=== PATIENT | male | born 1945 | race Caucasian/White ===

== ENCOUNTER 2020-07-24 00:02 | Emergency (ER) | payer MEDICARE, MEDICAID, SELFPAY ==
[2020-07-24] VITALS (7 sets, daily range): BP systolic 115–170; BP diastolic 63–106; PULSE 83–105; RESP 17–21; TEMP 36.6; O2SAT 91–96; BMI 23.3
--- NOTE | 2020-07-24 00:15 | XR_ITS ---
WS: [id number] Portable AP upright chest, 07/24/2020 Clinical Data: sob Comparison: Portable chest, 08/09/2015. Findings: No nodules, masses or effusions are seen. The heart is normal. The pulmonary vascularity is not increased. No pneumonia or pneumothorax is seen. The aortic arch and descending aorta show calci fication and tortuosity. The diaphragms are flattened. XR/XR chest 1V portable [id number] Impression: Atherosclerosis and hyperinflation.
--- NOTE | 2020-07-24 00:33 | ED_ITS ---
HPI - SOB/Dyspnea General: Chief Complaint: Shortness of Breath/Dyspnea Stated Complaint: sob Time Seen by Provider: 07/24/20 00:05 Source: patient Mode of arrival: ambulatory Limitations: no limitations History of Present Illness: HPI Narrative: 75-year-old male who is a long-term smoker and has been told the past he may have COPD but does not see a physician. He states that he said increasing shortness of breath over the last 2 to 3 days. When EMS arrived he states that he had diffuse wheezing he had a breathing treatment in route and is improved. He states he had a slight cough but denies any fever. Continues to smoke. He denies any chest pain. He states he feels improved after those breathing treatments. Associated symptoms: Deny abdominal pain, chest pain, fever(s), nausea or vomiting Review of Systems Const: Denies: fever(s), chills, body aches or change in appetite Eyes: Denies: blurry vision or eye discomfort ENMT: Denies: throat pain or dental pain Card: Denies: chest pain Resp: Denies: dyspnea GI: Denies: abdominal pain, nausea, vomiting or diarrhea : Denies: dysuria Musc: Denies: neck pain or back pain Skin/Breast: Denies: rash Neuro: Denies: headache(s) Psych: Denies: depression Buddy/Lymph: Denies: easy bruising All/Imm: Denies: urticaria Physical Exam Const: COMMON NORMALS: no acute distress, patient oriented x3 and healthy appearing HENMT: COMMON NORMALS: normocephalic and atraumatic HEAD & SCALP: normocephalic and atraumatic Eye: COMMON NORMALS: Equal, round and reactive pupils present and EOMs intact bilaterally PUPIL: Yes Equal, round and reactive pupils present Neck/C-Spine: COMMON NORMALS: full ROM and supple Chest: COMMONS NORMALS: normal inspection of the chest and normal palpation of entire chest wall Resp: COMMON NORMALS: normal respiratory effort, No retractions and No use of accessory muscles AUSCULTATION: wheezes Cardio: COMMON NORMALS: regular rate, regular rhythm and No murmurs present (Cardio) RATE: regular rate RHYTHM: regular rhythm GI: COMMON NORMALS: Normal to inspection, nondistended, normoactive bowel sounds present, Soft to palpation, non-tender and no masses PALPATION: Yes Soft to palpation Extremity: COMMON NORMALS: normal to inspection and full ROM Neuro: COMMON NORMALS: patient oriented x3, moves all extremities and no focal motor deficits Psych: COMMON NORMALS: mental status grossly normal, Normal thought process present and cooperative THOUGHT PROCESS: Normal thought process present Skin: COMMON NORMALS: no rashes or lesions noted and no wounds GENERAL SKIN EXAM: no rashes or lesions noted Course Vital Signs: Vital signs: Vital Signs Temperature 97.9 F 07/24/20 02:34 Pulse Rate 86 07/24/20 02:39 Respiratory Rate 19 H 07/24/20 02:34 Blood Pressure 146/95 07/24/20 02:34 Pulse Oximetry 91 07/24/20 02:34 MDM - SOB/Dyspnea MDM Narrative: Medical decision making narrative: Patient presents for shortness of breath along with likely bronchitis and undiagnosed COPD. Informed him he is to try and stop smoking. He feels much improved here after breathing treatments. X-ray shows no signs of pneumonia. I did offer him admission but he states he feels improved. Informed him he needs to get a outpatient PCP. Placed him on steroids and albuterol and he is to return if worsening. He understands agrees to plan. Lab Data: Labs: Lab Results 07/24/20 07/24/20 07/24/20 Range/Units 00:30 00:30 01:05 WBC 6.9 (4.0-10.0) 10^3/ uL RBC 4.62 (4.1-5.3) 10^6/u L Hgb 15.4 (11.7-16.6) g/dL Hct 44.8 (42.0-52.0) % MCV 97.0 H (80-94) fL MCH 33.3 (28.0-34.0) pg MCHC 34.4 (30.0-36.0) g/dL RDW 12.1 (12.1-15.1) % Plt Count 179 (130-400) 10^3/c mm MPV 10.4 (7.4-10.4) fL Neut % (Auto) 68.1 % Lymph % (Auto) 20.3 % [place] % (Auto) 9.0 % Eos % (Auto) 1.9 % Baso % (Auto) 0.4 % Neut # (Auto) 4.69 (1.8-7.7) 10^3/u L Lymph # (Auto) 1.4 (0.8-4.8) 10^3/u L [place] # (Auto) 0.6 (0.2-0.9) 10^3/u L Eos # (Auto) 0.1 (0.0-0.8) 10^3/u L Baso # (Auto) 0.0 (0.0-0.1) 10^3/u L Nucleated RBC % (a uto) 0 % Nucleated RBCs # 0.0 /100WBC Sodium 135 L (136-145) mmol/L Potassium 3.9 (3.5-5.1) mmol/L Chloride 99 (98-107) mmol/L Carbon Dioxide 29 (22-29) mmol/L Anion Gap 10.9 (5-19) BUN 12 (8-23) mg/dL Creatinine 0.6 L (0.7-1.2) mg/dL GFR Calculation Not Reportable Glucose 134 H (65-115) mg/dL Calculated Osmolal ity 282 L (285-295) mOsm/k g Calcium 8.9 (8.5-10.5) mg/dL Total Bilirubin 0.5 (0.15-1.2) mg/dL AST 24 (0-40) U/L ALT 16 (0-41) U/L Alkaline Phosphata se 60 (40-130) IU/L NT-Pro-B Natriuret Pep 186 (0-450) pg/mL Total Protein 7.0 (6.6-8.7) g/dL Albumin 4.0 (3.5-5.2) g/dL Globulin 3.0 (1.3-4.6) g/dL SARS-CoV-2 Ag (Rap id) Negative (Negative) Imaging Data^: CXR: Attestation: I personally reviewed and interpreted this imaging study as follows: My impression: no acute abnormality Discharge Plan Discharge Patient Disposition: Home Clinical Impression: Bronchitis Condition: Stable Prescriptions: New Keflex 500 mg capsule 500 mg PO Q6H 7 Days Qty: 28 RF: 0 prednisone 50 mg tablet 50 mg PO DAILY Qty: 5 RF: 0 albuterol sulfate 90 mcg/actuation HFA aerosol inhaler 2 inh INHALATION Q6H PRN (Reason: shortness of breath or wheezing) Qty: 8 RF: 0 Discharge Orders: Discharge ED (Routine); Ordered 07/24/20 Ordered By: Angel Pacheco Discharge Diet: Advance as tolerated Discharge Activity: Resume usual activity Patient Instructions: Acute Bronchitis (ED) Coding Level of Care Code ED Naval Gunfire Liaison Officer for Best Fwd Exam Comprehensive
[2020-07-24 00:48] LABS: Basophils % 0.4 %; Eosinophils # 0.1 10^3/uL (0.0-0.8); Eosinophils % 1.9 %; Hematocrit 44.8 % (42.0-52.0); Hemoglobin 15.4 g/dL (11.7-16.6); Lymphocytes # 1.4 10^3/uL (0.8-4.8); Lymphocytes % 20.3 %; Mean Corpuscular HGB Conc 34.4 g/dL (30.0-36.0); Mean Corpuscular Hemoglobin 33.3 pg (28.0-34.0); Mean Platelet Volume 10.4 fL (7.4-10.4); Monocytes # 0.6 10^3/uL (0.2-0.9); Neutrophils # 4.69 10^3/uL (1.8-7.7); Neutrophils % 68.1 %; Nucleated Red Blood Cells % 0 %; Platelet Count 179 10^3/cmm (130-400); Red Blood Count 4.62 10^6/uL (4.1-5.3); Red Cell Distribution Width 12.1 % (12.1-15.1); White Blood Count 6.9 10^3/uL (4.0-10.0)
[2020-07-24 01:09] LABS: Alkaline Phosphatase 60 IU/L (40-130); Blood Urea Nitrogen 12 mg/dL (8-23); Calcium 8.9 mg/dL (8.5-10.5); Carbon Dioxide 29 mmol/L (22-29); Chloride 99 mmol/L (98-107); Glucose 134 mg/dL (65-115); NT Pro B Type Natriuretic Pept 186 pg/mL (0-450); Osmolality Calculated 282 mOsm/kg (285-295); Sodium 135 mmol/L (136-145); Total Bilirubin 0.5 mg/dL (0.15-1.2)
[2020-07-24 01:11] LABS: Creatinine Clr Calc Pharmacy 80.2533
[2020-07-24] MEDS: ipratropium-albuterol 3 mL Neb INHALATION (01:11)
[2020-07-24 01:12] LABS: Anion Gap 10.9 (5-19); Potassium 3.9 mmol/L (3.5-5.1)
[2020-07-24 01:13] LABS: Alanine Aminotransferase 16 U/L (0-41); Aspartate Amino Transferase 24 U/L (0-40)
[2020-07-24] MEDS: tetanus-dipt-pertussis 0.5 mL SDV IM (01:23)
[2020-07-24 01:38] LABS: SARS Covid-2 Antigen Negative (Negative)
[2020-07-24] MEDS: albuterol 8 gm MDI 2 PUFF INHALATION (02:30)
--- NOTE | 2020-07-24 09:45 | DCPLANNER ---
assistant clinical nurse manager had message to speak with patient about getting established with a primary care physician. assistant clinical nurse manager called phone number [phone], unable to speak with patient at this time. assistant clinical nurse manager unable to leave a voicemail for patient at this time, phone number is no longer in service.
== END 2020-07-24 02:36 | disposition home or self-care (01) ==
PROVIDERS: Emergency Provider Emergency Medicine
DX: J40 Bronchitis, not specified as acute or chronic (principal); Z23 Encounter for immunization; I70.0 Atherosclerosis of aorta
CPT/HCPCS: 71045; 80053; 83880; 85025; 87426; 90471; 90715; 94640; 96374; 99284; J2930; J3535; J7611

== ENCOUNTER 2021-11-03 01:58 | Inpatient (IN) | payer MEDICARE, SELFPAY ==
[2021-11-03] VITALS (17 sets, daily range): BP systolic 79–189; BP diastolic 54–103; PULSE 68–96; RESP 14–18; TEMP 36.4–37.2; O2SAT 90–98; BMI 20.9
--- NOTE | 2021-11-03 02:01 | XRR_ITS ---
PROCEDURE INFORMATION: Exam: XR Chest Exam date and time: 11/03/2021 2:09 AM Age: 76 years old Clinical indication: Injury or trauma; Fall; Blunt trauma (contusions or hematomas) TECHNIQUE: Imaging protocol: XR of the chest. Views: 1 view. COMPARISON: CR XR chest 1V portable [id number] 07/24/2020 12:26 AM FINDINGS: Lungs: No consolidation. Pleural spaces: Unremarkable. No pleural effusion. No pneumothorax. Heart/Mediastinum: No cardiomegaly. Bones/joints: No acute fracture. XR/XR chest 1V portable [id number] IMPRESSION: No acute findings.
--- NOTE | 2021-11-03 02:01 | XRR_ITS ---
PROCEDURE INFORMATION: Exam: XR Right Hip Exam date and time: 11/03/2021 2:03 AM Age: 76 years old Clinical indication: Injury or trauma; Fall; Blunt trauma (contusions or hematomas); Right; Hip TECHNIQUE: Imaging protocol: XR Right hip. Views: 1 view hip with pelvis when performed. COMPARISON: No relevant prior studies available. FINDINGS: Bones/joints: Focal cortical defect noted along the lateral aspect of the right femoral neck which may be degenerative in etiology. Subtle nondisplaced fractures not totally excluded. If symptoms persist correlation with CT may be helpful. Soft tissues: Unremarkable. XR/XR hip RT 2-3V wo/w pel* [id number] IMPRESSION: Focal cortical defect noted along the lateral aspect of the right femoral neck which may be degenerative in etiology. Subtle nondisplaced fractures not totally excluded. If symptoms persist correlation with CT may be helpful.
--- NOTE | 2021-11-03 02:08 | ED_ITS ---
HPI - Fall General: Chief Complaint: Fall Stated Complaint: R hip pain-fall Time Seen by Provider: 11/03/21 02:01 Source: patient and EMS Mode of arrival: EMS Limitations: no limitations History of Present Illness: 76-year-old male states he was bending over to pickling solution maker his dog and he fell. He states he fell at home on the ground onto his right hip. He states immediately had right hip pain has not been able to ambulate or bear any weight since then. He denies any other injuries in his fall. He denies hitting his head denies any neck pain. He does have obvious deformity to his hip he received 100 mg of fentanyl in route by EMS. He still complaining of pain of 6 out of 10 especially with any movement. Associated symptoms-after fall: Denies abdominal pain, chest pain or headache(s) Review of Systems Const: Denies: fever(s), chills, body aches or change in appetite Eyes: Denies: blurry vision or eye discomfort ENMT: Denies: throat pain or dental pain Card: Denies: chest pain Resp: Denies: dyspnea GI: Denies: abdominal pain, nausea, vomiting or diarrhea : Denies: dysuria Musc: Reports: extremity pain Skin/Breast: Denies: rash Neuro: Denies: headache(s) Psych: Denies: depression Buddy/Lymph: Denies: easy bruising All/Imm: Denies: urticaria PFSH ED PFSH: Medical History (Updated 11/03/21 @ 02:25 by Angel Pacheco MD) No pertinent past medical history Social History (Updated 11/03/21 @ 02:11 by Angel Pacheco MD) Smoking and tobacco status: current every day smoker Physical Exam Const: COMMON NORMALS: no acute distress, patient oriented x3 and healthy appearing HENMT: COMMON NORMALS: normocephalic and atraumatic HEAD & SCALP: normocephalic and atraumatic Eye: COMMON NORMALS: Equal, round and reactive pupils present and EOMs intact bilaterally PUPIL: Yes Equal, round and reactive pupils present Neck/C-Spine: COMMON NORMALS: full ROM and supple Chest: COMMONS NORMALS: normal inspection of the chest and normal palpation of entire chest wall Resp: COMMON NORMALS: normal respiratory effort, No retractions, No use of accessory muscles and clear to auscultation bilaterally AUSCULTATION: clear to auscultation bilaterally Cardio: COMMON NORMALS: regular rate, regular rhythm and No murmurs present (Cardio) RATE: regular rate RHYTHM: regular rhythm GI: COMMON NORMALS: Normal to inspection, nondistended, normoactive bowel sounds present, Soft to palpation, non-tender and no masses PALPATION: Yes Soft to palpation Extremity: NARRATIVE EXTREMITY EXAM: Tenderness over right hip distal pulses intact. Neuro: COMMON NORMALS: patient oriented x3, moves all extremities and no focal motor deficits Psych: COMMON NORMALS: mental status grossly normal, Normal thought process present and cooperative THOUGHT PROCESS: Normal thought process present Skin: COMMON NORMALS: no rashes or lesions noted and no wounds GENERAL SKIN EXAM: no rashes or lesions noted Course Vital Signs: Vital signs: Vital Signs Temperature 98.5 F 11/03/21 02:00 Pulse Rate 76 11/03/21 02:00 Respiratory Rate 18 11/03/21 02:00 Blood Pressure 189/103 11/03/21 02:00 Pulse Oximetry 90 11/03/21 02:00 MDM - Fall Medical Decision Making Patient presents with a right hip fracture from a fall. No other injuries from the fall I spoke to hospitalist along with orthopedist and will admit at this time. Lab Data : 11/03/21 02:04 11/03/21 02:04 Laboratory Results WBC 8.0 10^3/uL (4.0-10.0) 11/03/21 02:04 RBC 4.66 10^6/uL (4.1-5.3) 11/03/21 02:04 Hgb 15.3 g/dL (11.7-16.6) 11/03/21 02:04 Hct 43.8 % (42.0-52.0) 11/03/21 02:04 MCV 94.0 fl (80-94) 11/03/21 02:04 MCH 32.8 pg (28.0-34.0) 11/03/21 02:04 MCHC 34.9 g/dL (30.0-36.0) 11/03/21 02:04 RDW 11.4 % (12.1-15.1) L 11/03/21 02:04 Plt Count 188 10^3/cmm (130-400) 11/03/21 02:04 MPV 9.9 fL (7.4-10.4) 11/03/21 02:04 Neut % (Auto) 58.6 % 11/03/21 02:04 Lymph % (Auto) 29.5 % 11/03/21 02:04 [place] % (Auto) 9.3 % 11/03/21 02:04 Eos % (Auto) 1.7 % 11/03/21 02:04 Baso % (Auto) 0.5 % 11/03/21 02:04 Neut # (Auto) 4.70 10^3/uL (1.8-7.7) 11/03/21 02:04 Lymph # (Auto) 2.4 10^3/uL (0.8-4.8) 11/03/21 02:04 [place] # (Auto) 0.8 10^3/uL (0.2-0.9) 11/03/21 02:04 Eos # (Auto) 0.1 10^3/uL (0.0-0.8) 11/03/21 02:04 Baso # (Auto) 0.0 10^3/uL (0.0-0.1) 11/03/21 02:04 Nucleated RBC % (auto) 0 % 11/03/21 02:04 Nucleated RBCs # 0.0 /100WBC 11/03/21 02:04 Discharge Plan Discharge Patient Disposition: Admitted As Inpatient Clinical Impression: Fall Closed fracture of right hip Qualifiers: Encounter type: initial encounter Qualified Code(s): S72.001A - Fracture of unspecified part of neck of right femur, initial encounter for closed fracture Condition: Stable Coding Level of Care Code ED Bilingual Patient Support Caseworker for Best Fwd Exam Comprehensive
[2021-11-03 02:13] LABS: Basophils % 0.5 %; Eosinophils # 0.1 10^3/uL (0.0-0.8); Eosinophils % 1.7 %; Hematocrit 43.8 % (42.0-52.0); Hemoglobin 15.3 g/dL (11.7-16.6); Lymphocytes # 2.4 10^3/uL (0.8-4.8); Lymphocytes % 29.5 %; Mean Corpuscular HGB Conc 34.9 g/dL (30.0-36.0); Mean Corpuscular Hemoglobin 32.8 pg (28.0-34.0); Mean Platelet Volume 9.9 fL (7.4-10.4); Monocytes # 0.8 10^3/uL (0.2-0.9); Monocytes % 9.3 %; Neutrophils % 58.6 %; Nucleated Red Blood Cells % 0 %; Platelet Count 188 10^3/cmm (130-400); Red Blood Count 4.66 10^6/uL (4.1-5.3); Red Cell Distribution Width 11.4 % (12.1-15.1)
[2021-11-03] MEDS: ondansetron 2 mg/ML SDV 2 mL 4 MG IVP (02:20)
[2021-11-03] MEDS: morphine 4 mg/mL SDV 1 mL IVP (02:20)
--- NOTE | 2021-11-03 02:29 | P.HP_ITS ---
Providers/Chief Complaint Admitting Physician: Stu Garcia MD Chief Complaint: R hip pain-fall History of Present Illness Dex Lucero is a 76 year old male with a past medical history significant for emphysema, coronary artery disease, and tobacco use disorder who presents to the emergency department complaining of right hip pain secondary to mechanical fall. Patient states he was in his usual state of health until around midnight when he bent over to picker/puller his dog and lost his balance causing him to fall. He states that he landed on his right hip. States that he had severe pain in his right hip with inability to bear weight or get up. In the ED, plain films revealed right hip fracture. Orthopedic surgery consulted. Patient reports prior surgical history of a coronary stent in the early . He also has a laparotomy incision but is unsure of what the surgery was done on his abdomen. Denies prior adverse reactions to anesthesia. Review of Systems Narrative: A complete review of systems was obtained and is negative except as stated in HPI. Medications/Allergies Home Medications Medication Instructions Recorded Confirmed Last Taken Type albuterol sulfate 90 mcg/actuation 2 inh INHALATION Q6H PRN #8 gm 07/24/20 Unknown Rx aerosol inhaler prednisone 50 mg tablet 50 mg PO DAILY #5 tab 07/24/20 Unknown Rx Allergies Allergy/AdvReac Type Severity Reaction Status Date / Time No Known Allergies Allergy Verified 07/24/20 00:11 PFSH Acute PFSH: Medical History (Updated 11/03/21 @ 02:41 by Stu Garcia MD) Coronary artery disease Emphysema lung No pertinent past medical history Tobacco use disorder Surgical History (Updated 11/03/21 @ 02:42 by Stu Garcia MD) History of laparotomy Stented coronary artery Family History (Updated 11/03/21 @ 02:47 by Stu Garcia MD) Father Diabetes Social History (Updated 11/03/21 @ 02:42 by Stu Garcia MD) Smoking and tobacco status: current every day smoker Alcohol intake: current Substance/Drug Use: never Vitals/I&O/Wt Last Vital Signs Temp 98.5 F 11/03/21 02:00 Pulse 76 11/03/21 02:00 Resp 18 11/03/21 02:00 BP 189/103 11/03/21 02:00 Pulse Ox 90 11/03/21 02:00 Weight last 48 hrs Weight 68.039 kg Physical Exam Narrative: General: Patient is awake and alert. Appears uncomfortable. Head: Normocephalic. Atraumatic. EOM intact. Neck: No JVD. Cardiovascular: RRR. No gallops. No murmurs. No peripheral edema. Lungs: Clear to auscultation, no use of accessory muscles, no crackles or wheezes. Skin: No jaundice. No rashes. Abdomen: Normal bowel sounds, abdomen soft and nontender. Genito Urinary: Genital exam not performed since complaints not related. Rectal: Rectal exam not performed since no symptoms indicated blood loss. Extremeties: No cyanosis or clubbing. Right lower extremity is slightly shortened and externally rotated. Musculoskeletal: No swollen or erythematous joints. Neurological: Moves all 4 extremities. No myoclonus. Data : 11/03/21 02:04 11/03/21 02:04 A&P Assessment and plan (1) Closed fracture of right hip: Secondary to mechanical fall Hip precautions Orthopedic surgery consulted in ED, appreciate recommendations N.p.o. Start maintenance fluids Start scheduled Tylenol Oxycodone for moderate pain Dilaudid for severe pain Start bowel regiment Will need PT/OT after surgery Fall precautions Strict bedrest Status: Acute Qualifiers: Encounter type: initial encounter Qualified Code(s): S72.001A - Fracture of unspecified part of neck of right femur, initial encounter for closed fracture (2) Fall: Fall precautions Status: Acute (3) Tobacco use disorder: Would benefit from cessation Anticipate tobacco cessation counseling prior to discharge Status: Acute (4) Coronary artery disease: Remote history of stent in the EKG ordered Status: Acute Plan DVT prophylaxis: Lovenox CODE STATUS: Full code Attestations Medical Necessity Statement*: Patient's presents with mechanical fall, found to have right hip fracture requiring hospitalization with expected treatment and management to cross 2 midnights. Coding Level of Care Code Acute Regulator Assembler for Chg Fwd Diagnoses Fall W19.XXXA Closed fracture of right hip S72.001A Encounter type: initial encounter Tobacco use disorder F17.200 Coronary artery disease I25.10
[2021-11-03 02:34] LABS: Alanine Aminotransferase 21 U/L (0-41); Albumin Level 4.1 g/dL (3.5-5.2); Alkaline Phosphatase 65 IU/L (40-130); Aspartate Amino Transferase 22 U/L (0-40); Blood Urea Nitrogen 20 mg/dL (8-23); Calcium 8.7 mg/dL (8.5-10.5); Carbon Dioxide 29 mmol/L (22-29); Chloride 100 mmol/L (98-107); Globulin 2.8 g/dL (1.3-4.6); Glucose 127 mg/dL (65-115); Osmolality Calculated 290 mOsm/kg (285-295); Sodium 138 mmol/L (136-145); Total Bilirubin 0.3 mg/dL (0.15-1.2); Total Protein 6.9 g/dL (6.6-8.7)
[2021-11-03 02:40] LABS: Anion Gap 12.9 (5-19); Potassium 3.9 mmol/L (3.5-5.1)
[2021-11-03 02:42] LABS: INR 1.01 (0.8-1.2)
--- NOTE | 2021-11-03 03:16 | ECG_ITS ---
[facility] Test Date: 2021-11-03 Pat Name: Dex Lucero Department: Room: 256 Gender: Male It Administrator: : 1945 Requested By: Stu Mukherjee Order Number: [id number] Petra MD: Terence Green M.D. Measurements Intervals [place] Rate: 89 P: 72 ME: 174 QRS: 69 QRSD: 91 T: 66 QT: 353 QTc: 430 Interpretive Statements SINUS RHYTHM NONSPECIFIC ST & T-WAVE ABNORMALITY No previous ECG available for comparison Electronically Signed On 11-03-2021 18:35:59 CDT by Terence Green M.D. [email or web address]
[2021-11-03] MEDS: oxyCODONE 5 mg IR Tab/Cap PO ×3 (03:59→23:26)
[2021-11-03] MEDS: acetaminophen 325 mg Tablet 650 MG PO ×4 (03:59→20:42)
[2021-11-03] MEDS: dextrose 5%-sod chloride 0.45% 1,000 ML 75 ML IV (04:01)
--- NOTE | 2021-11-03 07:47 | PM.CONSULT ---
Providers/Reason For Consult Consulting Physician/Specialty*: Michael Stubbs MD Reason for Consult*: Right femoral neck fracture Attending Physician: Stu Garcia MD History of Present Illness History of Present Illness Dex Lucero is a 76 year old male who sustained a mechanical he was transferred to our emergency room where radiographs revealed a displaced right femoral neck fracture. He previously lives with his . He uses no ambulatory aids. Medications/Allergies Home Medications Medication Instructions Recorded Confirmed Last Taken Type albuterol sulfate 90 mcg/actuation 2 inh INHALATION Q6H PRN #8 gm 07/24/20 Unknown Rx aerosol inhaler ibuprofen 200 mg tablet 400 mg PO Q4H PRN 11/03/21 11/03/21 Unknown History Allergies Allergy/AdvReac Type Severity Reaction Status Date / Time No Known Allergies Allergy Verified 11/03/21 07:48 Current Medications Generic Name Dose Route Start Last Admin Trade Name Freq PRN Reason Stop Dose Admin Acetaminophen 650 mg 11/03/21 03:16 11/03/21 03:59 Acetaminophen 325 Mg Tablet PO 650 mg Q6H ALONSO Administration Dextrose/Sodium Chloride 1,000 mls @ 75 mls/hr 11/03/21 03:16 11/03/21 04:01 Dextrose 5%-Sod Chloride 0.45% IV 75 mls/hr .[id number] ALONSO Administration Oxycodone HCl 5 mg 11/03/21 03:16 11/03/21 03:59 Oxycodone 5 Mg Ir Tab/Cap PO 5 mg Q4H PRN Administration SEVERE PAIN PFSH Acute PFSH: Medical History (Updated 11/03/21 @ 07:51 by Michael Stubbs MD) Coronary artery disease Emphysema lung No pertinent past medical history Tobacco use disorder Surgical History (Updated 11/03/21 @ 02:42 by Stu Garcia MD) History of laparotomy Stented coronary artery Family History (Updated 11/03/21 @ 02:47 by Stu Garcia MD) Father Diabetes Social History (Updated 11/03/21 @ 02:42 by Stu Garcia MD) Smoking and tobacco status: current every day smoker Alcohol intake: current Substance/Drug Use: never Vitals/I&O/Wt Last Vital Signs Temp 99.0 F 11/03/21 07:12 Pulse 79 11/03/21 07:12 Resp 16 11/03/21 07:12 BP 134/82 11/03/21 07:12 Pulse Ox 91 11/03/21 07:12 Weight last 48 hrs Weight 148 lb Weight 150 lb Physical Exam Narrative: The patient is supine the patient is supine in bed in no obvious distress. He answers questions appropriately and seems oriented to person place and time HEAD: Normocephalic/atraumatic. NECK: Soft supple nontender. HEART: Normal heart sounds, regular rhythm. CHEST: Clear to auscultation. ABDOMEN: Soft nontender nondistended. The patient's right knee is propped up on a pillow with no visible malrotation. He will flex and extend his right toes and ankle Palpable right dorsalis pedis pulse Data : 11/03/21 02:04 11/03/21 02:04 Xray Ortho: My impression: 2 views of the right hip are reviewed. The patient has a femoral neck fracture with apex anterior angulation. A&P Assessment and plan (1) Displaced fracture of right femoral neck: Patient has a displaced right femoral neck fracture. He is a smoker and of advanced age. I discussed options with the patient and family. I told them possible treatments for displaced femoral neck fracture would include nonoperative treatment, open reduction internal fixation, or hemiarthroplasty. With his age and smoking history and angulation I told him that I think the chance of pins failing is exceptionally high which would result in additional procedures. I told them without treatment the patient would experience ongoing of pain that would limit mobility. This would require pain medications and place her at medical risks due to prolonged periods of bed rest. I discussed the possibility of open reduction internal fixation with pins. I warned them that for displaced fractures of the risk of nonunion and malunion is exceptionally high. In addition there is a high likelihood that the blood applied to the femoral head has been disrupted and that even with successful stabilization of the fracture the femoral head will go on to . I finally discussed the possibility of hemiarthroplasty. I think this would give the patient the greatest chance of being immediately mobilized. I discussed risk of a bleeding and a possible need for blood products. I discussed risk of deep venous thromboses and pulmonary emboli and the need for anticoagulation. I discussed the use of the TXA that may be utilized to diminish blood loss. I discussed risk of component failure and loosening that could require revision. I discussed the risk of dislocation and a bipolar arthroplasty which is quite unlikely. After a long discussion of options they agree to hemiarthroplasty of the hip. I told him ultimately the patient will likely require snf placement. Status: Acute Coding Level of Care Code Acute Orthopedic Mechanic for Best [place] Diagnoses Displaced fracture of right femoral neck S72.001A
[2021-11-03] MEDS: sennosides 8.6 mg Tablet 17.2 MG PO (08:54)
[2021-11-03 09:10] LABS: Add Urine Microscopic? NO; Charge for UA Resulting for Rev
[2021-11-03 09:19] LABS: Bilirubin Urine Neg (Negative); Blood Urine Neg (Negative); Glucose Urine UA Norm (Normal); Ketones Urine Negative (Negative); Leukocyte Esterase Urine Negative (Negative); Nitrate Urine Negative (Negative); Protein Urine Neg (Negative); Urine Appearance Clear (CLEAR); Urine Color Yellow (Yellow); Urobilinogen Urine Norm (Negative); pH Urine 5 (5-7)
--- NOTE | 2021-11-03 10:22 | PC.CHAP ---
Pastoral Care Encounter/Spiritual Assessment Type of Contact [] Declined regional sales engineer visit [] Patient/Family/Request visit [] Outpatient visit [] Follow-up visit [] Physician referral [] Code/Alert [x] Routine visit [] Staff referral [] Actively dying [x] Patient sleeping [] Family support [] [] Out of room [] Palliative care [] [] Receiving care in room [] Pre-surgical visit [] Trauma [] Long length of stay [] ICU visit [] Other: Relational/Emotional Strength [] Patient feels connected with others/family/visitors/staff [] Distress [] Loneliness/isolation [] Abandonment Spirituality of Patient [] Person of Yolanda [] Attends Christian of their Yolanda [] Believes in Prayer [] Reads Bible or Denominational materials [] There are Spiritual issues to be addressed Melting Operator Interventions [] Prayer [] Active listening [] Non-anxious presence [] Spiritual/emotional support [] Crisis/trauma care [] Spiritual counseling [] Bereavement support [] Provided bereavement packet [] Provided Bible/devotional materials [] Provided toy/stuffed animal, coloring book to patient or family member [] Provided Communion [] Anointing/[place] [] Salvation [] Completed spiritual assessment [] Other: Impact on Illness or Injury [] Angry [] Fearful [] Anxious [] Often cries [] Exhaustion [] Unable to work [] Unable to attend shinto [] Unable to walk/stand [] Unable to read [] Unable to drive [] Unable to eat/drink [] Unable to sleep [] Unable to be with family [] Patient intubated [] Other: Summary Time spent with patient
--- NOTE | 2021-11-03 10:55 | P.ANESASSM_ITS ---
Pre-Anesthetic Assessment Height/Weight: Height 1.8 m Weight 67.132 kg Temp Pulse Resp BP Pulse Ox 99.0 F 79 16 134/82 91 11/03/21 07:12 11/03/21 07:12 11/03/21 07:12 11/03/21 07:12 11/03/21 07:12 Preop Diagnosis: Right femoral neck fracture Operation Date: 11/03/21 11:30 Proposed Procedures p Hemiarthroplasty Hip(Right) - Michael Stubbs MD Familial anesthetic complications: None Was Beta Shai taken within 24 hours: N/A Was Clonidine taken within 24 hours: N/A Last intake: > 8 hrs Social Tobacco and No alcohol Exam alert, oriented x 3, clear to auscultation bilaterally and regular rate & rhythm Airway Mallampati: Class III Dentition: partials Pulmonary Chronic Obstructive Pulmonary Disease Hx bronchitis CV/HEM Coronary Artery Disease (1 stent - ) None reported Hepatic None reported GI None reported Metabolic None reported Musc/skel None reported Neuropsych None reported Anesthetic Plan ASA status: 3 Anesthesia: Regional (specify below) Risk of > 500 ml blood loss (7ml/kg in children): No Medications/Allergies Home Medications Medication Instructions Recorded Confirmed Last Taken Type albuterol sulfate 90 mcg/actuation 2 inh INHALATION Q6H PRN #8 gm 07/24/20 11/03/21 Unknown Rx aerosol inhaler ibuprofen 200 mg tablet 400 mg PO Q4H PRN 11/03/21 11/03/21 Unknown History Allergies Allergy/AdvReac Type Severity Reaction Status Date / Time No Known Allergies Allergy Verified 11/03/21 10:55 Current Medications Generic Name Dose Route Start Last Admin Trade Name [place] PRN Reason Stop Dose Admin Acetaminophen 650 mg 11/03/21 03:16 11/03/21 08:54 Acetaminophen 325 Mg Tablet PO 650 mg Q6H ALONSO Administration Dextrose/Sodium Chloride 1,000 mls @ 75 mls/hr 11/03/21 03:16 11/03/21 04:01 Dextrose 5%-Sod Chloride 0.45% IV 75 mls/hr .[id number] ALONSO Administration Methylprednisolone Sodium Succinate 40 mg 11/03/21 09:15 11/03/21 09:11 Methylprednisolone Sod Succ 40 Mg/Ml Inj IVP 40 mg Q12H ALONSO Administration Oxycodone HCl 5 mg 11/03/21 03:16 11/03/21 03:59 Oxycodone 5 Mg Ir Tab/Cap PO 5 mg Q4H PRN Administration SEVERE PAIN Senna 17.2 mg 11/03/21 09:00 11/03/21 08:54 Sennosides 8.6 Mg Tablet PO 17.2 mg BID ALONSO Administration PFSH Anesthesia Medical History (Updated 11/03/21 @ 07:51 by Michael Stubbs MD) Coronary artery disease Emphysema lung No pertinent past medical history Tobacco use disorder Surgical History (Updated 11/03/21 @ 02:42 by Stu Garcia MD) History of laparotomy Stented coronary artery Family History (Updated 11/03/21 @ 02:47 by Stu Garcia MD) Father Diabetes Social History (Updated 11/03/21 @ 02:42 by Stu Garcia MD) Smoking and tobacco status: current every day smoker Alcohol intake: current Substance/Drug Use: never Data Anesthesia : 11/03/21 02:04 11/03/21 02:04 Short CBC 11/03/21 Range/Units 02:04 WBC 8.0 (4.0-10.0) 10^3/uL Hgb 15.3 (11.7-16.6) g/dL Hct 43.8 (42.0-52.0) % MCV 94.0 (80-94) fl Plt Count 188 (130-400) 10^3/cmm Neut % (Auto) 58.6 % Neut # (Auto) 4.70 (1.8-7.7) 10^3/uL BMP 11/03/21 02:04 Sodium 138 Potassium 3.9 Chloride 100 Carbon Dioxide 29 BUN 20 Creatinine 0.9 Glucose 127 H Calcium 8.7 Liver Function 11/03/21 Range/Units 02:04 Total Bilirubin 0.3 (0.15-1.2) mg/dL AST 22 (0-40) U/L ALT 21 (0-41) U/L Alkaline Phosphatase 65 (40-130) IU/L Albumin 4.1 (3.5-5.2) g/dL Urine 11/03/21 Range/Units 09:05 Urine Color Yellow (Yellow) Urine Appearance Clear (CLEAR) Urine pH 5 (5-7) Ur Specific [place] 1.020 (1.005-1.030) Urine Protein Neg (Negative) Urine Glucose (UA) Norm (Normal) Urine Ketones Negative (Negative) Urine Nitrate Negative (Negative) Urine Bilirubin Neg (Negative) Ur Leukocyte Esterase Negative (Negative) Coags 11/03/21 02:04 PT 13.60 INR 1.01 Cardiac Studies: No Data to Display
--- NOTE | 2021-11-03 11:00 | ECG_ITS ---
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 Measurements Intervals [place] Rate: 70 P: 76 WV: 185 QRS: 79 QRSD: 89 T: 73 QT: 396 QTc: 430 Interpretive Statements SINUS RHYTHM NONSPECIFIC ST & T-WAVE ABNORMALITY Compared to ECG 11/03/2021 11:24:28 No significant changes Electronically Signed On 11-03-2021 18:35:19 CDT by Terence Green M.D. [id number]
--- NOTE | 2021-11-03 11:06 | PM.MISC ---
Miscellaneous Note Note: Patient is stating that his pain is uncontrolled He is willing to go to a SNF after his surgery Plan for surgery around noon Active smoker I have noticed active wheezing during my evaluation Currently on 3 L nasal cannula Does not use oxygen at home S1, S2 Euvolemic Nonfocal neuro exam Abdomen soft Surgery today for right femoral neck fracture Added steroids for active wheezing COPD mild exacerbation Acute hypoxia requiring 3 L of oxygen Afebrile
[2021-11-03] MEDS: sodium chloride 0.9% 1,000 ML 30 ML IV (11:11)
--- NOTE | 2021-11-03 11:19 | PC.NURSE ---
Patent arrived in OPS with a IV documented as in right AC however, IV in left AC. Infusing NS as ordered per anesthesia.
[2021-11-03] MEDS: tranexamic acid 1,000 mg/10mL SDV 1000 MG IV (12:00)
[2021-11-03] MEDS: tranexamic acid 1,000 mg/10mL SDV 2000 MG IRRIGATION (12:30)
--- NOTE | 2021-11-03 13:16 | XR_ITS ---
WS: [id number] RIGHT hip, one view. HISTORY: Hip replacement. COMPARISON: 11/03/2021. Interval placement of a RIGHT hip arthroplasty in good position and alignment. XR/XR hip RT 1V wo/w pel [id number] IMPRESSION: Normal AP position RIGHT hip prosthesis.
--- NOTE | 2021-11-03 13:17 | PM.OP ---
Operative Report Date of procedure: November 03, 2021 Pre-op diagnosis: Preop Diagnosis Right femoral neck fracture Post-op diagnosis: same Procedure done: Hemiarthroplasty right hip Implants: Aurora 1) Accolade II stem, size 6 2) 50 bipolar femoral head 3) 28mm/-4 neck length femoral head Pathology: none sent Surgeon: Michael Stubbs Anesthesia: Nerve Block (Spinal) Estimated blood loss (mL): 200 Findings: The patient had the previously described displaced fracture of the right femoral neck Disposition: PACU Procedure: The patient was taken to the operating room and a [] anesthesia was provided by the anesthesia service. They were given [] and 1 g of tranexamic acid and positioned in the lateral position with the hip exposed. A 10 cm long incision was made over the greater trochanter with a scalpel blade. Dissection was carried down through the fascia denton to the greater trochanter. The anterior two thirds of gluteus medius and minimus were elevated off the greater trochanter with electrocautery. The capsule was divided T like fashion. The hip was externally rotated and the neck brought up into the wound. An oscillating saw was really used to resect the neck just above the level of the lesser trochanter. The femoral head was removed and the acetabulumt sized to a 50 mm bipolar head. Bone quality was satisfactory and a press-fit application was chosen sequential reaming and broaching of the canal was accomplished up to a size 6. A size 6 Aurora Accolade 2 stem was press-fit into place. A trial reduction with a -4 mm neck provided excellent stability. The final head and neck were placed and the hip reduced. The anterior capsule were reapproximated with 1 Ethibond. The gluteus medius and minimus were repaired through the greater trochanter with 5 Ethibond and reinforced with 1 Ethibond. The fascia denton was closed with 1 Stratafix. The subcutaneous tissues were closed with 2-0 Stratafix. The skin was closed with a running 4-0 Stratafix. The incision was covered with a Prineo dressing. Sterile Opsitedressings were applied. The patient was placed in abduction pillow and taken recovery room in stable condition.
[2021-11-03] MEDS: sodium chloride 0.9% 1,000 ML 80 ML IV ×2 (14:27→23:27)
[2021-11-03] MEDS: enoxaparin 40 mg/0.4 mL Syringe SUBCUT (20:42)
[2021-11-04] VITALS (9 sets, daily range): BP systolic 127–151; BP diastolic 75–87; PULSE 75–110; RESP 14–22; TEMP 36.5–37.2; O2SAT 91–98
[2021-11-04] MEDS: acetaminophen 325 mg Tablet 650 MG PO ×4 (03:57→20:42)
[2021-11-04 05:59] LABS: Basophils % 0.1 %; Hematocrit 39.7 % (42.0-52.0); Hemoglobin 13.7 g/dL (11.7-16.6); Lymphocytes # 0.5 10^3/uL (0.8-4.8); Mean Corpuscular HGB Conc 34.5 g/dL (30.0-36.0); Mean Corpuscular Hemoglobin 32.5 pg (28.0-34.0); Mean Corpuscular Volume 94.3 fl (80-94); Mean Platelet Volume 10.2 fL (7.4-10.4); Monocytes # 0.4 10^3/uL (0.2-0.9); Neutrophils # 9.11 10^3/uL (1.8-7.7); Neutrophils % 90.4 %; Nucleated Red Blood Cells % 0 %; Platelet Count 143 10^3/cmm (130-400); Red Blood Count 4.21 10^6/uL (4.1-5.3); Red Cell Distribution Width 11.5 % (12.1-15.1); White Blood Count 10.1 10^3/uL (4.0-10.0)
[2021-11-04 06:13] LABS: Anion Gap 13.3 (5-19); Blood Urea Nitrogen 13 mg/dL (8-23); Calcium 8.3 mg/dL (8.5-10.5); Carbon Dioxide 25 mmol/L (22-29); Chloride 102 mmol/L (98-107); Glucose 137 mg/dL (65-115); Osmolality Calculated 284 mOsm/kg (285-295); Potassium 4.3 mmol/L (3.5-5.1); Sodium 136 mmol/L (136-145)
[2021-11-04] MEDS: oxyCODONE 5 mg IR Tab/Cap PO (07:59)
[2021-11-04] MEDS: sennosides 8.6 mg Tablet 17.2 MG PO ×2 (07:59→16:34)
--- NOTE | 2021-11-04 12:34 | P.PN_ITS ---
Subjective Subjective: Patient is doing well, pain under control, wheezing has improved Currently on 2 L nasal cannula Patient is endorsing feeling better, PT recommended short-term rehab versus home health program Patient is stating that he would like to discuss with his and let us know Vitals/I&O/Wt Last Vital Signs Temp 97.7 F 11/04/21 11:48 Pulse 75 11/04/21 11:48 Resp 18 11/04/21 11:48 BP 127/76 11/04/21 11:48 Pulse Ox 98 11/04/21 11:48 11/03/21 11/04/21 11/04/21 22:59 06:59 14:59 Intake Total 170 / 420 770 / 1190 0 / 0 Output Total 700 / 1550 300 / 300 Balance 170 / -430 70 / -360 -300 / -300 Weight last 48 hrs Weight 67.132 kg Weight 68.039 kg Physical Exam Narrative: Patient is doing well Pain under control No signs of vascular compromise Wheezing has improved currently on 2 L nasal cannula no active chest pain Looks euvolemic Calm and cooperative Nonfocal exam S1, S2 Abdomen soft Urinary Catheter Management: Peacock Latex: Cath Placed During This Visit: yes, but has since been removed by the nurse Reason for Continuing Indwelling Catheter: Decision to DC Catheter Urinary Catheter Date of Insertion: 11/03/21 Urinary Catheter Time of Insertion: 12:01 Date Urinary Catheter Removed: 11/04/21 Time Urinary Catheter Discontinued: 10:00 Data : 11/04/21 05:09 11/04/21 05:09 A&P Assessment and plan (1) Displaced fracture of right femoral neck: Status: Acute (2) Coronary artery disease: Status: Acute (3) Tobacco use disorder: Status: Acute (4) Closed fracture of right hip: Status: Acute Qualifiers: Encounter type: initial encounter Qualified Code(s): S72.001A - Fracture of unspecified part of neck of right femur, initial encounter for sherly sed fracture (5) Fall: Status: Acute (6) No pertinent past medical history: Status: Acute Plan Hip fracture status post intervention postop day 1 Currently on 2 L cannula, COPD exacerbation: Wheezing has improved with steroids Will need home O2 eval care home placement is pending, patient would like to discuss with his first Pain under control On bowel regimen Afebrile No postop complications Daily PT evaluation DVT prophylaxis: Lovenox Attestations Medical Necessity Statement*: Awaiting placement Time Spent in Patient Care: 30 Coding Level of Care Code Acute Reinforcing Steel Machine Operator for Chg Fwd Diagnoses Displaced fracture of right femoral neck S72.001A Coronary artery disease I25.10 Tobacco use disorder F17.200 Closed fracture of right hip S72.001A Encounter type: initial encounter Fall W19.XXXA No pertinent past medical history Z78.9
[2021-11-04] MEDS: sodium chloride 0.9% 1,000 ML 80 ML IV (14:29)
--- NOTE | 2021-11-04 17:08 | P.PN_ITS ---
Subjective Subjective: Patient up with therapy today. Walked the serra. Some p.o. intake. Passing urine. Vitals/I&O/Wt Last Vital Signs Temp 97.8 F 11/04/21 16:00 Pulse 98 11/04/21 16:00 Resp 16 11/04/21 16:00 BP 130/79 11/04/21 16:00 Pulse Ox 92 11/04/21 16:00 11/04/21 11/04/21 11/04/21 06:59 14:59 22:59 Intake Total 770 / 1190 1170 / 1170 Output Total 700 / 1550 600 / 600 Balance 70 / -360 570 / 570 Weight last 48 hrs Weight 148 lb Weight 150 lb Physical Exam Narrative: Right hip dressing clean and dry. Minimal swelling right thigh Urinary Catheter Management: Peacock Latex: Cath Placed During This Visit: yes, but has since been removed by the nurse Reason for Continuing Indwelling Catheter: Decision to DC Catheter Urinary Catheter Date of Insertion: 11/03/21 Urinary Catheter Time of Insertion: 12:01 Date Urinary Catheter Removed: 11/04/21 Time Urinary Catheter Discontinued: 10:00 Data : 11/04/21 05:09 11/04/21 05:09 A&P Assessment and plan (1) Status post right hip replacement: Dex is doing fairly well. He states it will be difficult for his to care for him alone and will want nursing home placement at least for short period of time. Okay for discharge per Ortho. 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
--- NOTE | 2021-11-04 17:10 | ANE.PACU2 ---
Inpatient post-anesthesia follow up: Airway intact: Yes Vital signs: Temperature 97.8 F Pulse Rate 98 Respiratory Rate 16 Blood Pressure 130/79 Pulse Oximetry 92 Oxygen Delivery Me thod Nasal Cannula Oxygen Flow Rate 2 Fraction of Inspir ed Oxygen Hydration adequate: Yes Nausea and vomiting: No Pain level: 1 Mental status: Baseline
[2021-11-04] MEDS: ipratropium-albuterol 3 mL Neb INHALATION (19:56)
[2021-11-04] MEDS: enoxaparin 40 mg/0.4 mL Syringe SUBCUT (21:16)
[2021-11-04] MEDS: temazepam 15 mg Capsule PO (23:17)
--- NOTE | 2021-11-05 03:16 | PC.NURSE ---
Pt stated he is having to pee to much and refused to let me reconnect his fluids after a new IV start. Pt got out of bed without assistance and pulled out IV. I explained to patient safety and use of call light and placed call light on pt chest. Stressed to patient to use call light if he needs assistance. Pt is alert and orientedx4. I explained to patient the importance of fluid replacement and encourage PO intake. He understood and insisted he did not want the fluids.
[2021-11-05 04:00] VITALS: BP 132/80; PULSE 102; RESP 17; TEMP 36.9; O2SAT 92
[2021-11-05] MEDS: sodium chloride 0.9% 1,000 ML 80 ML IV (05:23)
[2021-11-05] MEDS: EPINEPHrine 0.1 mg/mL SYR 10 mL 1 MG IVP ×6 (07:34→07:46)
[2021-11-05] MEDS: sodium bicarbonate 8.4% 1 mEq/mL 50mL Syr 50 MEQ IVP ×2 (07:38→07:41)
[2021-11-05] MEDS: naloxone 0.4 mg/ml SDV IVP (07:50)
--- NOTE | 2021-11-05 08:03 | P.MISC_ITS ---
Miscellaneous Note Note: I was notified by the electronic imaging system operator regarding CODE BLUE When I entered the room Dr. Kwan was leading the code, As per the nursing staff patient was anxious and tachycardic overnight and respiratory was administered by the artillery or naval gunfire observer Today when nursing attendant entered the room to check vitals she noticed that he was not doing well, she notified her nurse nurse went to examine him, she found no pulse and called CODE BLUE ACLS protocol was called, code was ran by Dr. Kwan Time of 7:50 AM I notified his , she lives 20 miles away, if she is not able to arrange any rides, will try to assist her Had a family meeting at 11:24 AM, I did explain what could have happened overnight as he became tachycardic pulm embolism and fat embolism still in the differentials I did offered family that if they want to go for an autopsy doubts their legal rights, is stating that she would let him have peace, she is not requesting autopsy All of the questions were answered, they were very receptive of my clinical findings
--- NOTE | 2021-11-05 08:06 | PC.NURSE ---
At approximately 0730 patient was found with no pulse. Chest compressions started and code called. See code notes for further details.
--- NOTE | 2021-11-05 08:13 | PC.NURSE ---
CODE BLUE NOTE 0732: This RN called [id number] and reported Code Blue to this patient's room, FORESTRY FARM LABORER had reported patient was pulseless 0732: This RN presented to the room and CPR was in progress. 0734: 1 mg of Epinephrine administered 0734: 20# IV started in right AC 0734: Zoll pads applied, initial rhythm Asystole 0736: 1 mg of Epinephrine administered 0738: pulse check, patient remains pulseless, Asystole on the monitor, compressions resumed 0738: 1 mg of Epinephrine administered 0738: 1 amp of Sodium Bicarb administered 0740: Pulse check, patient remains pulseless, Asystole on the monitor, compressions resumed 0741: 1 mg of Epinephrine administered 0741: 1 amp of Sodium bicarb adminstered 0742: pulse check, patient remains pulseless, Asystole on the monitor, compressions resumed 0744: pulse check, patient remains pulseless, Asystole on the monitor, compressions resumed 0744: 1 mg of Epinephrine administered 0746: pulse check, patient remains pulseless, Asystole on the monitor, compressions resumed 0748: Narcan 0.4 mg administred 0748: Pulse check, patient remains pulseless, Asystole on the monitor, compressions resumed 0750: Dr. Buchanan reviewed all possible causes for cardiac arrest, discussed with Code Team, all were in agreement to stop resuscitation efforts. 0750: Time of called by Dr. Buchanan, patient's notifed by Dr. White
--- NOTE | 2021-11-05 11:25 | PM.DDS ---
Discharge Providers DDS Date of Admission: 11/03/21 02:24 Date Summary Completed: 11/05/21 Attending Provider at Admission: Stu Garcia MD Attending Provider at Discharge: MD ABDIAZIZ Reese Diagnoses Hospital Diagnoses (1) Status post right hip replacement: Reason for Visit Reason for Visit R hip pain-fall Summary Summary Summary: Patient was admitted for management of hip fracture right femoral neck fracture, his surgery went well, for COPD exacerbation he was requiring 2 to 3 L of oxygen, for his wheezing steroids were given which improved his respiratory symptoms, overnight became tachycardic and anxious he received Restoril and this morning around 7:30 AM DAVIDE RM was called after nurse found him obtunded with no pulse. Code was led by Dr. Kwan, patient was intubated by the ER physician, patient at 7:50 AM family meeting conducted, they are not opting for autopsy Additional Data Confirmation of as documented by pronouncing clinician: no pulse, no respirations, no heart sounds and pupils fixed and dilated Family: contacted Additional persons at bedside: nursing staff Attending/PCP notified?: I am attending Was code activated?: Yes Autopsy requested?: No Advance directives?: No Discharge Plan Discharge Patient Disposition: Home Condition: Stable Prescriptions: No Action albuterol sulfate 90 mcg/actuation HFA aerosol inhaler 2 inh INHALATION Q6H PRN (Reason: shortness of breath or wheezing) Qty: 8 0RF ibuprofen 200 mg Tablet 400 mg PO Q4H PRN (Reason: Pain) 0RF Referrals: [facility] [Outside] Nigel Berger FNP [Physician Floor And Wall Applier Liquid] - 1 month Discharge Activity: Limit activity as instructed Patient Instructions: Opioid Safety Activity Restrictions/Additional Instructions: Leave dressings in place Okay to shower or sponge bathe. Weight-bear as tolerated operative hip DS Attestations Time Spent in /Discharge Care*: less than 30 min Quality - AMI: AMI present?: No Quality - Stroke: CVA present?: No Quality - VTE: VTE present?: No Coding Level of Care Code Acute Craft Coordinator for Chg Fwd Diagnoses Status post right hip replacement Z96.641
--- NOTE | 2021-11-05 13:58 | PC.NURSE ---
Patient belongings sent with .
== END 2021-11-05 12:00 | disposition expired | DRG 522 ==
LOC: ER 02:40 → MEDSURG 03:04
PROVIDERS: Orthopaedic Surgery; Admitting Provider Internal Medicine; Emergency Provider Emergency Medicine; Visit Provider Internal Medicine
PROC: 0SRR0JA Replacement of Right Hip Joint, Femoral Surface with Synthetic Substitute, Uncemented, Open Approach (ICD-10-PCS; CPT 27125; principal; 2021-11-03 11:30)
DX: S72.001A Fracture of unspecified part of neck of right femur, initial encounter for closed fracture (principal); W18.30XA Fall on same level, unspecified, initial encounter; F17.200 Nicotine dependence, unspecified, uncomplicated; J43.9 Emphysema, unspecified; I25.10 Atherosclerotic heart disease of native coronary artery without angina pectoris; I46.9 Cardiac arrest, cause unspecified; F41.9 Anxiety disorder, unspecified; R00.0 Tachycardia, unspecified
CPT/HCPCS: 36415; 51702; 71045; 73501; 73502; 80048; 80053; 81003; 85025; 85610; 93005; 94640; 96372; 96374; 96375; 97110; 97116; 97161; 97166; 99285; C1776; J0171; J1580; J1650; J2270; J2310; J2405; J2704; J2920; J3010; J3490; J7030; J7799